=== PATIENT | male | born 1995 | race Caucasian/White ===

== ENCOUNTER 2023-07-27 22:52 | Emergency (ER) | payer OTHER, SELFPAY ==
[2023-07-27 22:55] VITALS: BP 130/82; PULSE 83; RESP 18; TEMP 36.5; O2SAT 98
--- NOTE | 2023-07-27 23:00 | ECG_ITS ---
Measurements Intervals [place] Rate: 86 P: 27 PA: 142 QRS: 45 QRSD: 105 T: 38 QT: 371 QTc: 446 Interpretive Statements SINUS RHYTHM NONSPECIFIC T-WAVE ABNORMALITY BORDERLINE ECG NO PREVIOUS ECG AVAILABLE FOR COMPARISON Electronically Signed On 07-28-2023 18:17:32 PARTITION SETTER by Ti Quezada M.D.
--- NOTE | 2023-07-28 02:15 | ED.GENADULT ---
HPI - General Adult General Chief complaint: Unspecified Stated complaint: N/V, SOB Time Seen by Provider: 07/28/23 02:07 History of Present Illness HPI narrative: 28-year-old male with history of GERD reports for evaluation for a GERD attack. Patient states he had a fried chicken sandwich, [place] fries and a lemonade from [employer]. A few hours later he went to bed woke up with burning epigastric pain and burning pain in his neck. States this is how his GERD presents and has been presenting for multiple years. He has been taking omeprazole 30 mg daily for few years. He is recently status with the GI doctor within the past month as scheduled for an EGD and a few weeks. Reports episode of emesis earlier secondary to coughing from GERD. Denies melena, hematochezia, hematemesis, coffee-ground emesis, fever. He is requesting a new prescription to help control his GERD. Related Data Allergies Allergy/AdvReac Type Severity Reaction Status Date / Time No Known Allergies Allergy Verified 07/28/23 02:25 Review of Systems Review of Systems: CONSTITUTIONAL: Denies fever, chills, or sweats. EYES: Denies visual changes, redness, or discharge. ENT: Denies rhinorrhea, congestion, sore throat, or otalgia. CARDIOVASCULAR: Denies chest pain, palpitations, or edema. RESPIRATORY: Denies cough or dyspnea. GASTROINTESTINAL: See HPI GENITOURINARY: Denies dysuria or hematuria. SKIN: Denies rash or itching. MUSCULOSKELETAL: Denies back pain, joint pain, or myalgia. NEUROLOGIC: Denies headache, numbness, or weakness. PSYCHIATRIC: Denies anxiety or depression. Exam Narrative: GENERAL: Well-appearing, well-nourished, and in no acute distress. Patient resting comfortably in exam bed. He is pleasant and conversational. Nontoxic appearing. Speaking in full sentences. Satting 90% on room air. HEAD: Normocephalic, atraumatic. EYES: PERRLA and EOMI. ENT: Nares clear, no rhinorrhea or epistaxis. Mucous membranes moist. NECK: Supple. CHEST: Clear to auscultation. No respiratory distress. HEART: Regular rate and rhythm. No murmur heard. Normal peripheral pulses. ABDOMEN: Soft, nontender, nondistended, normal active bowel sounds. Negative Hernandez's sign. EXTREMITIES: Normal range of motion. No edema. SKIN: Warm, dry, no rash. NEURO: No focal deficits. Alert and oriented x3 Course Vital Signs Vital signs: Vital Signs Temperature 97.7 F 07/27/23 22:55 Pulse Rate 83 07/27/23 22:55 Respiratory Rate 18 07/27/23 22:55 Blood Pressure 130/82 07/27/23 22:55 Pulse Oximetry 98 07/27/23 22:55 Oxygen Delivery Room Air 07/27/23 22:55 Temperature 97.7 F 07/27/23 22:55 Pulse Rate 82 07/28/23 02:17 Respiratory Rate 16 07/28/23 02:17 Blood Pressure 115/81 07/28/23 02:17 Pulse Oximetry 96 07/28/23 02:17 Oxygen Delivery Room Air 07/27/23 22:55 Medical Decision Making MDM Narrative Medical decision making narrative: 28-year-old male with history of GERD presents to emergency department for GERD attack. HPI for further history. Vitals stable. Patient is well-appearing on exam. Nontoxic appearing. Abdomen is soft and nontender. EKG shows sinus rhythm, no ischemic changes. Patient received p.o. Pepcid and GI cocktail with improvement in symptoms. Will send him home with prescription for Pepcid and encourage close GI follow-up. Discussed diet restrictions. Strict ED return precautions discussed. He is agreeable to plan verbalized understanding. Discharged in stable condition. Vital Signs Vital Signs: Vital Signs Temperature 97.7 F 07/27/23 22:55 Pulse Rate 83 07/27/23 22:55 Respiratory Rate 18 07/27/23 22:55 Blood Pressure 130/82 07/27/23 22:55 Pulse Oximetry 98 07/27/23 22:55 Oxygen Delivery Room Air 07/27/23 22:55 Temperature 97.7 F 07/27/23 22:55 Pulse Rate 82 07/28/23 02:17 Respiratory Rate 16 07/28/23 02:17 Blood Pressure 115/81 07/28/23 02:17 Pulse Oxi
[2023-07-28 02:17] VITALS: BP 115/81; PULSE 82; RESP 16; O2SAT 96
[2023-07-28] MEDS: FAMOTIDINE 20 MG TABLET PO (02:26)
[2023-07-28] MEDS: BELLADONNA ALK/PHENOB ELIX 10 ML, MAG HYDROX/ALUMINUM HYD/SIMETH 30 ML, LIDOCAINE HCL 2... PO (02:26)
[2023-07-28 03:00] VITALS: BP 141/80; PULSE 78; RESP 18; O2SAT 99
== END 2023-07-28 03:12 | disposition home or self-care (01) ==
PROVIDERS: Emergency Provider Physician Assistant
DX: K21.9 Gastro-esophageal reflux disease without esophagitis (principal); R94.31 Abnormal electrocardiogram [ECG] [EKG]
CPT/HCPCS: 93005; 99283; A9270